=== PATIENT | male | born 1970 | race Two or more races ===

== ENCOUNTER 2020-04-12 17:35 | Emergency (ER) | payer SELFPAY ==
--- NOTE | 2020-04-12 18:25 | ER Document Report ---
ED Medical Screen (RME) - General Chief Complaint: Nose Bleed Stated Complaint: NOSE BLEED Time Seen by Provider: 04/12/20 18:14 Mode of Arrival: Ambulatory Information source: Patient Notes: 49-year-old male presented to ED for complaint of nosebleeds. He states he has never had a nosebleed before Monday. He states Monday he had a nosebleed that lasted about 5 minutes and then stopped Monday he had a nosebleed that lasted about 5 minutes and then stopped Monday he had a nosebleed that lasted about 30 minutes and was still bleeding when he came to the emergency room. I have put a 2 x 2 with Vaseline gauze into the left nare and he is not having a nosebleed since I inserted the gauze in his nose. Have ordered labs and he will be seen by another provider. He states he does smoke a pack a day drinks 6-8 beers on the weekend and does not use any illicit drugs. He states he has no past medical history and is not on any current medications. Recheck blood pressure was a little lower than what was on the initial vital signs but it is still very elevated I have greeted and performed a rapid initial assessment of this patient. A comprehensive ED assessment and evaluation of the patient, analysis of test results and completion of medical decision making process will be conducted by an additional ED providers. - Related Data Allergies/Adverse Reactions: No Known Allergies Allergy (Verified 04/12/20 18:18) Physical Exam - Vital signs Vitals: Temp Pulse Resp BP Pulse Ox 97.6 F 74 20 202/89 H 97 04/12/20 17:59 04/12/20 17:59 04/12/20 17:59 04/12/20 17:59 04/12/20 17:59 Course - Vital Signs Vital signs: Temp Pulse Resp BP Pulse Ox 97.6 F 74 20 202/89 H 97 04/12/20 17:59 04/12/20 17:59 04/12/20 17:59 04/12/20 17:59 04/12/20 17:59
[2020-04-12 19:03] LABS: ABSOLUTE BASOPHILS # (AUTO) 0.1 10^3/uL (0.0-0.2); ABSOLUTE EOSINOPHILS # (AUTO) 0.5 10^3/uL (0.0-0.6); ABSOLUTE LYMPHOCYTES (AUTO) 2.5 10^3/uL (0.5-4.7); ABSOLUTE MONOCYTES (AUTO) 0.9 10^3/uL (0.1-1.4); ABSOLUTE NEUT (AUTO) 6.5 10^3/uL (1.7-8.2); BASOPHILS % (AUTO) 0.8 % (0-2); EOSINOPHILS % (AUTO) 4.4 % (0-6); HEMATOCRIT 44.8 % (37.9-51.0); HEMOGLOBIN 15.3 g/dL (13.5-17.0); LYMPHOCYTES % (AUTO) 23.8 % (13-45); MEAN CORPUSCULAR HEMOGLOBIN 29.4 pg (27.0-33.4); MEAN CORPUSCULAR HGB CONC 34.2 g/dL (32.0-36.0); MEAN CORPUSCULAR VOLUME 86 fl (80-97); MONOCYTES % (AUTO) 8.4 % (3-13); PLATELET COUNT 179 10^3/uL (150-450); RED BLOOD COUNT 5.21 10^6/uL (4.35-5.55); RED CELL DISTRIBUTION WIDTH 13.1 % (11.5-14.0); SEGMENTED NEUTROPHILS % (AUTO) 62.6 % (42-78); TOTAL CELLS COUNTED % (AUTO) 100 %; WHITE BLOOD COUNT 10.4 10^3/uL (4.0-10.5)
[2020-04-12 19:09] LABS: INTERNATIONAL RATION (INR) 0.96
[2020-04-12 19:10] LABS: PARTIAL THROMBOPLASTIN TIME 29.7 SEC (23.5-35.8)
[2020-04-12 19:17] LABS: ALBUMIN 4.3 g/dL (3.5-5.0); ALKALINE PHOSPHATASE 92 U/L (38-126); ANION GAP 8 (5-19); ASPARTATE AMINO TRANSFERASE 43 U/L (17-59); BILIRUBIN,TOTAL 0.5 mg/dL (0.2-1.3); BLOOD UREA NITROGEN 18 mg/dL (7-20); CALCIUM 9.6 mg/dL (8.4-10.2); CARBON DIOXIDE 29 mmol/L (22-30); CHLORIDE 103 mmol/L (98-107); GLUCOSE 102 mg/dL (75-110); POTASSIUM 3.7 mmol/L (3.6-5.0); TOTAL PROTEIN 7.3 g/dL (6.3-8.2)
[2020-04-12] MEDS ORDERED: HYDROCHLOROTHIAZIDE 25 MG TABLET PO ONE (20:20)
--- NOTE | 2020-04-12 20:23 | ER Document Report ---
ED ENT - General Chief Complaint: Nose Bleed Stated Complaint: NOSE BLEED Time Seen by Provider: 04/12/20 18:14 Primary Care Provider: [facility] [Provider Group] - Follow up in 1 week Mode of Arrival: Ambulatory Notes: Patient is a 49 year old male that comes to the Emergency Department for chief complaint of a nosebleed. Patient states that he initially had a nosebleed that lasted only 5 minutes then stopped, this was yesterday, he had another 5 minutes nosebleed that stopped earlier today, and then this evening he had a nosebleed that lasted 30 minutes and was still bleeding when he came to the emergency department. Patient had Vaseline gauze inserted to his left nare where the nosebleed was occurring in triage and he stopped bleeding almost immediately afterwards. Patient denies headache, chest pain, difficulty urinating. He denies frequent nosebleeds, any new medications. He states he used to be on blood pressure medication and cholesterol medication but he has not been on these in years. He smokes, drinks alcohol in the weekends, denies recreational drugs, denies medical history otherwise. Patient is [place]ian-speaking primarily, I did offer disability program navigator, patient declined and wishes his son who speaks good German to interpret for him. - Related Data Allergies/Adverse Reactions: No Known Allergies Allergy (Verified 04/12/20 18:18) Past Medical History - General Information source: Patient - Social History Smoking Status: Current Every Day Smoker Frequency of alcohol use: None Drug Abuse: None Lives with: Family Family History: Reviewed & Not Pertinent - Past Medical History Cardiac Medical History: Reports: Hx Hypercholesterolemia, Hx Hypertension Surgical Hx: Negative Review of Systems - Review of Systems Constitutional: No symptoms reported EENT: See HPI Cardiovascular: No symptoms reported Respiratory: No symptoms reported Gastrointestinal: No symptoms reported Genitourinary: No symptoms reported Male Genitourinary: No symptoms reported Musculoskeletal: No symptoms reported Skin: No symptoms reported Hematologic/Lymphatic: No symptoms reported Neurological/Psychological: No symptoms reported Physical Exam - Vital signs Vitals: Temp Pulse Resp BP Pulse Ox 97.6 F 74 20 202/89 H 97 04/12/20 17:59 04/12/20 17:59 04/12/20 17:59 04/12/20 17:59 04/12/20 17:59 - Notes Notes: GENERAL: Alert, interacts well. No acute distress. HEAD: Normocephalic, atraumatic. EYES: Pupils equal, round, and reactive to light. Extraocular movements intact. ENT: Oral mucosa moist, tongue midline. Oropharynx unremarkable. Airway patent. Very small amount of dried blood in the left nasal passage in the mid nasal passage, no current epistaxis, no blood in the posterior pharynx, otherwise unremarkable. Sinuses nontender. Ear canals unremarkable, TM's intact. NECK: Full range of motion. Supple. Trachea midline. No lymphadenopathy. LUNGS: Clear to auscultation bilaterally, no wheezes, rales, or rhonchi. No respiratory distress. Non-tender chest wall. HEART: Regular rate and rhythm. No murmur ABDOMEN: Soft, non-tender. Non-distended. EXTREMITIES: Moves all 4 extremities spontaneously. No edema, normal radial and dorsalis pedis pulses bilaterally. No cyanosis. BACK: no cervical, thoracic, lumbar midline tenderness. No saddle anesthesia, normal distal neurovascular exam. Moves all extremities in full range of motion. NEUROLOGICAL: Alert and oriented x3. Normal speech. Cranial nerves II through XII grossly intact. Strength 5/5 in all extremities. PSYCH: Normal affect, normal mood. SKIN: Warm, dry, normal turgor. No rashes or lesions noted. Course - Re-evaluation Re-evalutation: Patient does not have epistaxis on my exam. This stopped easily with just Vaseline gauze from triage. Patient very hypertensive but he denies headache, chest pain, I did review laboratory work-up from triage and this included CBC and chemistry, this was unremarkable. Kidney function unremarkable. Patient was given HCTZ. Blood pressure did significantly improved. Patient was previously on a single blood pressure medication. I discussed with patient. He states he is interested in being evaluated by primary care and follow-up for additional management of his blood pressure, I discussed the extreme importance of this, I discussed epistaxis treatment, expectations, and return precautions. Patient and son state appreciation and agreement. Stable and well-appearing at time of discharge. - Vital Signs Vital signs: Temp Pulse Resp BP Pulse Ox 97.6 F 74 19 168/92 H 100 04/12/20 17:59 04/12/20 17:59 04/12/20 21:32 04/12/20 21:32 04/12/20 21:32 - Laboratory Result Diagrams: 04/12/20 18:32 04/12/20 18:32 Laboratory results interpreted by me: 04/12/20 18:32 ALT 70 H Discharge - Discharge Clinical Impression: Epistaxis, Uncontrolled hypertension Condition: Stable Disposition: HOME, SELF-CARE Additional Instructions: Your blood tests look good. Your blood pressure was very high, please take the blood pressure medication every day, it is very important that you follow-up with the clinic to get this rechecked to control your pressures. There is a significant chance of re-bleeding following a nosebleed. Proper care makes this less likely. Do not touch the nose for 24 hours. Do not blow the nose forcefully for one week. After 24 hours, gently apply Vaseline or Bacitracin ointment to both nostrils with the tip of a finger or carefully with a Q tip, three times a day, for one week. It's normal to have a bloody mucous discharge for a few days. If active bleeding recurs, blow all the blood from the nose, then sit quietly and pinch the nose as firmly as possible for 10 minutes. If this does not stop the bleeding, return for further care. Return for any other concerning symptoms including headache or chest pain. Tus anlisis de stephanie se michell melly. Atkins presin arterial era muy grupo, por favor tome el medicamento para la presin arterial todos los carranza, es muy importante que usted idris un seguimiento con la clnica para que esto se revise de nuevo para controlar levy presiones. Existe ramón probabilidad significativa de volver a sangrar despus de un sangrado nasal. Un cuidado adecuado hace que esto sea menos probable. No toque la nariz flaco 24 horas. No sople la nariz con fuerza flaco ramón semana. Despus de 24 horas, aplicar suavemente vaselina o pomada de baci tracina en ambas fosas nasales con la punta de un dedo o cuidadosamente con ramón punta Q, kanwal veces al da, flaco ramón semana. Es normal tener ramón descarga mucosa sangrienta por unos carranza. Si el sangrado activo reapare, sopla toda la stephanie de la nariz, luego sintate tranquilamente y pellizca la nariz con la seguridad posible flaco 10 minutos. Si esto no detiene el sangrado, regrese para obtener ms cuidados. Regrese por cualquier otro sntoma relacionado, incluyendo dolor de justin o dolor en el pecho. Prescriptions: Hydrochlorothiazide [Hydrodiuril 25 mg Tablet] 25 mg PO QAM #30 tablet Referrals: [facility] [Provider Group] - Follow up in 1 week
[2020-04-12 21:36] VITALS: BP 168/92
== END 2020-04-12 21:40 | disposition home or self-care (01) ==
LOC: ER 17:35
DX: R04.0 Epistaxis (principal); I10 Essential (primary) hypertension; F17.200 Nicotine dependence, unspecified, uncomplicated
CPT/HCPCS: 36415; 80053; 85025; 85610; 85730; 99283